=== PATIENT | male | born 1960 | race Caucasian/White ===

== ENCOUNTER 2017-02-28 08:29 | Outpatient (CLI) | payer MEDICARE, MEDICAID ==
[~2017-02-28 08:29] MED LIST: ALPRAZOLAM0.5 MG PO; ALPRAZOLAM1 MG ORAL; ATIVAN1 MG ORAL; AZITHROMYCIN250 MG ORAL; BENAZEPRIL HCL40 MG ORAL; EFFEXOR XR150 MG ORAL; GEODON20 MG ORAL; GEODON40 MG ORAL; HYDROCHLOROTHIA25 MG ORAL; NORCO 5-325 TA1 EACH ORAL; PHENERGAN6.25 MG/5 ORAL; XANAX0.25 MG ORAL; ZOCOR40 MG ORAL
--- NOTE | 2017-02-28 11:42 | Diagnostic Imaging Report ---
Indication: PAIN Technique: 3 views of the right ankle Comparison: none Findings: No acute fractures. No dislocations. Joint spaces are preserved Impression: Negative
== END 2017-02-28 10:29 | disposition home or self-care (01) ==
LOC: RAD 08:29
DX: M25.571 Pain in right ankle and joints of right foot (principal)

== ENCOUNTER → 2017-03-28 | Outpatient (CLI) | payer MEDICARE, MEDICAID ==
--- NOTE | 2017-03-28 16:05 | Diagnostic Imaging Report ---
Indication: Pain 3 views of the right knee were obtained. Findings: No acute fracture, malalignment, or joint effusion are identified. Joint space is relatively well-maintained. Bone mineralization is within normal limits for age. Impression: Negative exam
== END | disposition home or self-care (01) ==
LOC: RAD 15:07
DX: M25.561 Pain in right knee (principal)

== ENCOUNTER 2017-04-13 09:40 | Outpatient (RCR) | payer MEDICARE, MEDICAID, OTHER ==
[2017-05-15] MEDS ORDERED: ALLOPURINOL100 M1 ORAL (13:44)
[2017-05-21] MEDS ORDERED: NORVASC5 MG ORAL (14:40)
== END 2017-04-28 | disposition home or self-care (01) ==
LOC: PTY 09:40
DX: S93.401A Sprain of unspecified ligament of right ankle, initial encounter (principal); X58.XXXA Exposure to other specified factors, initial encounter; Y93.9 Activity, unspecified; Y92.9 Unspecified place or not applicable
CPT/HCPCS: 97110; 97161; 97535; G8978; G8979